=== PATIENT | male | born 1950 | race African-American/Black ===

== ENCOUNTER → 2018-03-18 | Outpatient (CLI) | payer MEDICARE, OTHER ==
[~2018-03-18] MED LIST: AMLODIPINE BESYL5 MG PO; ASPIRIN81 M2 PO; CALCIUM 500 MG1 EACH PO; CELEBREX200 MG PO; COMBIVENT RESPIM4 GM IH; FLEXERIL5 MG PO; HYDROCODON-ACE1 EAC7 PO; LIPITOR40 MG PO; LO-DOSE ASPIRIN81 M2 PO; LOPRESSOR50 MG PO; MULTI VITAMIN1 EACH PO; MULTIVITAMIN1 EAC2 PO; ONE-A-DAY ESSE1 EAC1 PO; PANTOPRAZOLE SO40 MG PO; PAXIL20 MG PO; PAXIL40 MG PO; SPIRIVA1 INHALATI IH; TRIAZOLAM0.25 MG PO; TYLENOL REGULA325 MG PO; UNABLEOBTAIN; VAPOR INHALER50 MG BOTH NARES
== END | disposition home or self-care (01) ==
LOC: CDC 14:00
DX: Z01.810 Encounter for preprocedural cardiovascular examination (principal)
CPT/HCPCS: 93000

== ENCOUNTER → 2018-05-04 | Outpatient (CLI) | payer OTHER | END | disposition home or self-care (01) | LOC: NUC 09:26 | DX: M19.011 Primary osteoarthritis, right shoulder (principal); M17.0 Bilateral primary osteoarthritis of knee; M47.897 Other spondylosis, lumbosacral region | CPT/HCPCS: 78306; A9503 ==

== ENCOUNTER 2018-05-28 17:22 | Emergency (ER) | payer OTHER ==
[~2018-05-28] VITALS: Ht 182.9 cm; Wt 102.9 kg
[2018-05-28 20:01] LABS: HEMATOCRIT 42.3 % (38.0-50.0); HEMOGLOBIN 13.9 G/DL (12.5-16.6); MCH 29.4 PG (29.0-34.0); MCHC 32.9 G/DL (30.0-36.0); MCV 89.4 FL (86-99); PLATELET COUNT 219 K/uL (156-360); RBC DIS.WIDTH-CV 14.2 % (11.8-14.6); RBC DIS.WIDTH-SD 46.5 % (39-53); RED BLOOD COUNT 4.73 M/uL (4.00-5.50); WHITE BLOOD COUNT 7.1 K/uL (4.1-10.2)
[2018-05-28 20:16] LABS: ALBUMIN 3.9 g/dL (3.2-4.8); CHLORIDE 111 mEq/L (99-109); POTASSIUM 4.8 mEq/L (3.7-5.4); SODIUM 143 mEq/L (136-147)
[2018-05-28 20:18] LABS: GLUCOSE 93 mg/dL (70-99)
[2018-05-28 20:19] LABS: APPEARANCE CLEAR ((CLEAR)); BILIRUBIN NEGATIVE; BLOOD NEGATIVE; COLOR YELLOW ((YELLOW)); GLUCOSE (STRIP) NEGATIVE; KETONES 5; LEUKOCYTES NEGATIVE; NITRITE NEGATIVE; PROTEIN (STRIP) 30; SPECIFIC GRAVITY 1.034 (1.000-1.030); UCUL ADDED? NO
[2018-05-28 20:20] LABS: TOTAL BILIRUBIN 0.3 mg/dL (0.0-1.0)
[2018-05-28 20:22] LABS: ALKALINE PHOSPHATASE 78 IU/L (3-129); GFR ESTIMATE (CALCULATED) > 59 mL/min/ (58.99-99999)
[2018-05-28 20:23] LABS: AST (GOT) 22 IU/L (2-34); UREA NITROGEN (BUN) 19 mg/dL (9-23)
[2018-05-28 20:25] LABS: ALT (GPT) 17 IU/L (3-49)
[2018-05-28 20:30] LABS: TROP-I INTERPRETATION NEGATIVE; TROPONIN-I < 0.01 ng/mL (0.0-0.30)
[2018-05-28 22:58] VITALS: BP 146/69
== END 2018-05-28 23:05 | disposition home or self-care (01) ==
LOC: EME 17:22
PROVIDERS: Physician Assistant
DX: R42 Dizziness and giddiness (principal); I10 Essential (primary) hypertension; Z85.46 Personal history of malignant neoplasm of prostate; F41.9 Anxiety disorder, unspecified; J45.909 Unspecified asthma, uncomplicated; Z79.82 Long term (current) use of aspirin; Z87.891 Personal history of nicotine dependence
CPT/HCPCS: 70450; 71045; 80053; 81003; 84484; 85027; 93005; 99281; 99284; J7030